=== PATIENT | male | born 1935 | race Caucasian/White ===

== ENCOUNTER → 2017-10-13 | Outpatient (CLI) | payer OTHER ==
[~2017-10-13] VITALS: Ht 175.3 cm; Wt 80.3 kg
[~2017-10-13] MED LIST: ALEVE220 MG PO; ASPIR 8181 MG PO; ATORVASTATIN CA40 MG PO; BENAZEPRIL HCL20 MG PO; CELEXA20 MG PO; NORVASC5 MG PO; SYNTHROID50 MCG PO
--- NOTE | ~2017-10-13 | S ---
[facility] [place] [address] SURGICAL PATH RPT PROCEDURE Name: LIZZY HERNANDEZ Room #: REG SONIA M..#: [id number] Admission: 10/13/17 Date of : 37 Discharge: Report #: [id number] Path Case #: [id number] PATHOLOGY REPORT COLLECTION DATE: 10/13/2017 RECEIVED DATE: 10/13/2017 SUBMITTING PHYS: Dr. Jordan Malhotra OTHER PHYS: Dr. Todd Moran SPECIMEN(S) RECEIVED: A.Polyp at cecum B.Polyp at proximal ascending colon C.Polyp at distal transverse D.Polyp at 70 cm E.Polyp at 20 cm * * * * * * * * * * * * FINAL DIAGNOSIS: A. Polyp, at cecum, endoscopic biopsy: - Minute tubular adenoma. - Negative for high-grade dysplasia. B. Polyp, proximal ascending colon, endoscopic biopsy: - Hyperplastic polyp and a lymphoid aggregate - Negative for dysplasia. C. Polyp, distal transverse, endoscopic biopsy: - Hyperplastic polyp and a lymphoid aggregate. - Negative for dysplasia. D. Polyp, at 70 cm, endoscopic biopsy: - Hyperplastic polyp. - Negative for dysplasia. E. Polyp, at 20 cm, endoscopic biopsy: - Hyperplastic polyp. - Negative for dysplasia. (IUV:pit; 10/14/2017) PATHOLOGIST: Roxie Thomas M.D. REPORT ELECTRONICALLY SIGNED BY: Roxie Thomas M.D. DATE/TIME: 10/14/2017 14:24 * * * * * * * * * * * * GROSS PATHOLOGY: A. Received in formalin labeled "Rolf Janeth, polyp at cecum," is a segment of chávez soft tissue measuring 0.4 cm in maximum dimension. The specimen is submitted entirely in cassette A1. B. Received in formalin labeled "Rolf Janeth, polyp at proximal ascending colon," is a segment of chávez soft tissue measuring 0.[address] [address] SURGICAL PATH RPT PROCEDURE Name: LIZZY HERNANDEZ Room #: REG [facility].#: [id number] Admission: 10/13/17 Date of : 37 Discharge: Report #: [id number] Path Case #: [id number] maximum dimension. The specimen is submitted entirely in cassette B1. C. Received in formalin labeled "Rolf Janeth, polyp at distal transverse," is a segment of chávez soft tissue measuring 0.3 cm in maximum dimension. The specimen is submitted entirely in cassette C1. D. Received in formalin labeled "Rolf Janeth, polyp at 70 cm," is a segment of chávez soft tissue measuring 0.4 cm in maximum dimension. The specimen is submitted entirely in cassette D1. E. Received in formalin labeled "Rolf Janeth, polyp at 20 cm," is a segment of chávez soft tissue measuring 0.3 cm in maximum dimension. The specimen is submitted entirely in cassette E1. (TSD; 10/13/2017) CLINICAL HISTORY: Pre-OP DX: History of colon polyps Post-OP DX: Colon polyps INITIAL CPT CODE(S): A; 48003 B; 60512 C; 75785 D; 85026 E; 26825 Professional services performed by [facility] at [facility] [address], [place] [address] Technical services performed by [facility] at [address] [place] [address], [address], [place] [address]. [facility] [address] [place] [address] PHONE: [phone] DIRECTOR: Grant Bronson M.D. * * * END OF REPORT * * *
--- NOTE | ~2017-10-13 | P ---
[facility] [address] PROCEDURE REPORT Name: LIZZY HERNANDEZ Room #: REG [facility]#: [id number] Admission: 10/13/17 Attend Phys: Jordan Malhotra MD Discharge: Date of : 37 Report #: [id number] THIS REPORT FOR: //name// CC: Jordan Moran DATE OF SERVICE: 10/13/2017 BRIEF HISTORY: The patient is an 82-year-old male with a history of colon polyps. PREOPERATIVE DIAGNOSIS: History of colon polyps. POSTOPERATIVE DIAGNOSES: 1. Colon polyps. 2. Sigmoid diverticulosis coli. MEDICATIONS: Deep sedation with propofol per Anesthesia. SPECIMEN: 1. Polyp, cecum. 2. Polyp, proximal ascending colon. 3. Polyp, distal transverse colon. 4. Polyp, 70 cm. 5. Polyp, 20 cm. ESTIMATED BLOOD LOSS: 3 mL. PROCEDURE: Colonoscopy to cecum and terminal ileum with biopsy. FINDINGS: Prior to propofol sedation, procedure of colonoscopy discussed with the patient as well as potential risks and its complications. He indicates he understands and desires to proceed. DESCRIPTION OF PROCEDURE: With the patient in left lateral decubitus position, digital examination was completed which revealed no abnormalities. Subsequently, the [employer] video colonoscope was introduced in the rectum, advanced under direct vision to the cecum. Done with minimal difficulty. The cecum was identified by the ileocecal valve and appendiceal orifice. I was able to visualize the distal segment of terminal ileum, which was inspected and noted to be unremarkable. At that point, the scope was slowly withdrawn and careful circumferential views were obtained of the colon. The prep was good. The mucosa was within normal limits. Normal vascular pattern, normal light reflex. Within the cecum, a diminutive polyp seen and removed by biopsy. Scope was further withdrawn of the proximal ascending colon and another diminutive polyp seen and removed by biopsy. As the scope was withdrawn, the mucosa was within [facility] [address] [place] [address] PROCEDURE REPORT Name: LIZZY HERNANDEZ [facility] [id number] Admission: 10/13/17 Attend Phys: Jordan Malhotra MD Discharge: Date of : 37 Report #: [id number] normal limits until the distal transverse colon, where another diminutive polyp was seen and removed by biopsy. At 70 cm, another diminutive polyp was seen and removed by biopsy. In the sigmoid colon, there was moderately severe diverticular disease without endoscopic evidence of diverticulitis. In the distal sigmoid at 20 cm, another diminutive polyp seen and removed by biopsy. The scope was drawn in the rectum and no additional abnormalities were seen. Upon retroflexion, no abnormalities were seen. Scope was withdrawn. The patient tolerated the procedure well. CONDITION OF THE PATIENT UPON DISCHARGE: Following procedure, the patient drowsy, aroused, conversant and will be discharged home when fully ambulatory. INSTRUCTIONS TO THE PATIENT AND FAMILY AT THE TIME: Five small polyps identified as noted above. We will follow up on the pathology report. If 3 or more polyps are adenomas, we may wish to consider a followup colonoscopy in about 3 years. I would base that recommendation on his overall health status at that time. Otherwise, there may be minimal benefit to continue the routine colonoscopy. The patient's last colonoscopy was 01/11/2008. Withdrawal time from the cecum was 24 minutes 30 seconds. <ELECTRONICALLY SIGNED> By: Jordan Malhotra MD 10/14/17 1015 [id number] [id number] Jordan Malhotra MD /nt
== END | disposition home or self-care (01) ==
LOC: GI 08:54
DX: Z09 Encounter for follow-up examination after completed treatment for conditions other than malignant neoplasm (principal); D12.0 Benign neoplasm of cecum; K63.5 Polyp of colon; K57.30 Diverticulosis of large intestine without perforation or abscess without bleeding; I10 Essential (primary) hypertension; E78.5 Hyperlipidemia, unspecified; Z85.828 Personal history of other malignant neoplasm of skin; Z86.010 Personal history of colon polyps; Z87.891 Personal history of nicotine dependence; Z98.890 Other specified postprocedural states; Z79.899 Other long term (current) drug therapy; Z79.82 Long term (current) use of aspirin
CPT/HCPCS: 62110; 62900

== ENCOUNTER 2020-07-21 09:14 | Inpatient (IN) | payer OTHER ==
[~2020-07-21] VITALS: Ht 175.3 cm; Wt 75.3 kg
--- NOTE | ~2020-07-21 | O ---
[facility] [place] [address] OPERATIVE REPORT Name: LIZZY HERNANDEZ Room #: 447-P [facility] IN M.R.#: [id number] Admission: 08/01/20 Attend Phys: Sarmad Sheridan MD Discharge: Date of : 37 Report #: [id number] THIS REPORT FOR: cc: Todd Moran MD, Rene P. MD Abraham,Sarmad Tripp MD ~ CC: Todd Sheridan DATE OF SERVICE: 08/01/2020 PREOPERATIVE DIAGNOSIS: Left knee osteoarthritis. POSTOPERATIVE DIAGNOSIS: Left knee osteoarthritis. PROCEDURE: Left total knee arthroplasty using Navio robotic assistance. SURGEON: Sarmad Sheridan MD. BLENDER OPERATOR: Karen Fernández PA-C. INDICATIONS FOR BLENDER OPERATOR: Throughout the case, extensive retraction and manipulation of the knee was required. This was afforded to me by my endodontic assistant. ANESTHESIA: LMA with an adductor canal block. IMPLANTS: Rashid and Nephew size 7 Journey II BCS cobalt chrome femur, size 5 tibia, size 11 constrained polyethylene and size 35 patella. TOURNIQUET TIME: 62 minutes. ESTIMATED BLOOD LOSS: 25 mL. COMPLICATIONS: None. SPECIMENS: None. CONDITION UPON LEAVING THE OPERATING ROOM: Stable. INDICATIONS FOR PROCEDURE: The patient is an 84-year-old gentleman with severe left knee osteoarthritis. He had failed conservative measures for this and after discussion with him, he elected for left total knee arthroplasty. DESCRIPTION OF PROCEDURE: Risks, benefits, alternatives, complications were discussed in detail with the patient including, but not limited to risk of anesthesia; risk of damage to nerves, arteries, blood vessels; risk for [facility] [address] [place] [address] OPERATIVE REPORT Name: LIZZY HERNANDEZ Room #: 447-P [facility] IN .R.#: [id number] Admission: 08/01/20 Attend Phys: Sarmad Sheridan MD Discharge: Date of : 37 Report #: [id number] infection, bleeding; risk for continued knee pain, need for reoperation. Informed consent was obtained from the patient. Left knee was appropriately marked in the preoperative holding area. IV Ancef was given for preoperative antibiotics. Adductor canal block was placed by Anesthesia. He was brought to the operating room and placed in supine position on operating room table. LMA anesthesia was induced without complication. Tourniquet was placed on the left thigh. Left lower extremity was prepped and draped in normal sterile fashion. Timeout was performed properly identifying the patient and procedure as well as the instrumentation and implants. All in the operating room were in agreement. Left lower extremity was exsanguinated, tourniquet was inflated. Tourniquet time was 62 minutes. Standard midline approach to the knee was made with 10 blade through the skin. Dissection was taken down sharply to the fascia and deep flaps were developed medially and laterally. Fresh 10 blade was used to make a medial parapatellar arthrotomy and the knee was inspected. There was severe tricompartmental osteoarthritis. ACL and PCL were removed sharply. Reference pins were placed in the femur and the tibia and the knee was then digitally mapped using the Net[employer] robotic system. We sized the size 7 femur with a size 5 tibia with a 10 spacer. After acceptance of the intraoperative plan, the distal femoral cut was made with a Navio bur. Distal femoral cutting block was pinned in place and anterior, posterior and chamfer cuts were made. After this, attention was turned to the tibia. Remainder of the menisci was removed with Bovie cautery. Tibial resection guide was pinned in place using the Navio for placement. Tibial resection was made. Flexion and extension gaps were then checked and found to be tight medially in extension. Medial osteophytes were removed from the tibia and a limited medial release was performed using the pie crust technique. This balanced the knee well in flexion and extension medially with laxity laterally. It was felt we could make up for this with the final implant. After this, tibia was sized, found to be a size 5. A size 5 tibial trial was placed, pinned and punched. A size 7 femoral trial was placed and box cut was made. This was then trialed with a size 10 and then a size 11 polyethylene and size 11 polyethylene demonstrated 1-2 millimeter of laxity medially and 4 mm of laxity laterally throughout range of motion. It was felt we could make up for this with a constrained implant. After this, 9 mm was resected from the posterior surface of the patella and a size 35 patellar trial button was placed. Knee was taken through range of motion, found to be stable, found to have good patellar tracking. Trial components were removed. Bony ends were thoroughly irrigated with normal saline. Final size 5 tibia, size 7 Journey II BCS cobalt chrome femur and a size 35 patella were cemented in place using standard cementation techniques. While the cement cured, a periarticular injection consisting of morphine, ropivacaine, epinephrine and Toradol was placed around the knee joint capsule. After the cement cured, tourniquet was deflated. Hemostasis was obtained with Bovie cautery. A final size 11 constrained polyethylene was placed. A gram of vancomycin was placed deep in the joint. Fascia was closed with 0 Vicryl, skin was closed with 2-0 Vicryl, 3-0 Monocryl. Dermabond and a JADYN dressing was applied. The patient tolerated [facility] [address] [place] [address] OPERATIVE REPORT Name: LIZZY HERNANDEZ Room #: 447-P ADM IN M.R.#: [id number] Admission: 08/01/20 Attend Phys: Sarmad Sheridan MD Discharge: Date of : 37 Report #: [id number] this procedure well and went to recovery room under care of anesthesia postoperatively. By: 1426 1526 Sarmad Sheridan MD /nt
[~2020-07-21 09:14] MED LIST changes: -ATORVASTATIN CA40 MG PO; +BENAZEPRIL-HCT1 EACH PO; +CENTRUM SILVER1 EAC5 PO; +CITRACAL + D M1 EACH PO; +LEVO-T75 MCG PO; +LIPITOR40 MG PO; +PROSCAR 5MG TABL5 M1 PO
[2020-07-21 13:05] LABS: HEMATOCRIT 46.2 % (42.0-52.0); HEMOGLOBIN 15.5 gm/dL (14.0-18.0); MCH 31.9 pg (26.0-34.0); MCHC 33.5 g/dL (28.0-37.0); MCV 95.1 fL (80.0-100.0); RBC 4.86 mil/uL (4.50-6.00); RDW 13.8 % (10.5-14.5); WBC 7.4 thou/uL (4.0-11.0)
[2020-07-21 13:12] LABS: ALBUMIN 4.2 g/dL (3.4-5.0); CALCIUM 9.1 mg/dL (8.5-10.1); CREATININE 0.9 mg/dL (0.7-1.3); POTASSIUM 4.5 mmol/L (3.5-5.1)
[2020-07-21 13:16] LABS: INR 1.1; PROTIME 11.5 Seconds (9.3-11.4)
[2020-07-21 13:22] LABS: URINE BILIRUBIN NEGATIVE (Negative); URINE BLOOD NEGATIVE (Negative); URINE CLARITY CLEAR; URINE COLOR YELLOW; URINE GLUCOSE-RANDOM* NEGATIVE (Negative); URINE KETONES TRACE (Negative); URINE LEUKOCYTES-REFLEX NEGATIVE (Negative); URINE NITRITE-REFLEX NEGATIVE (Negative); URINE PROTEIN (DIPSTICK) NEGATIVE (Negative); URINE SPECIFIC GRAVITY 1.025 (1.005-1.035); URINE UROBILINOGEN 0.2 E.U./dl (0.2-1.0)
--- NOTE | 2020-07-21 13:27 | EKG ---
[facility] [place] [address] ELECTROCARDIOGRAM REPORT Name: LIZZY HERNANDEZ Room #: PRE IN M.R.#: [id number] Admission: Attend Phys: Sarmad Sheridan MD Discharge: Date of : 37 Report #: [id number] THIS REPORT FOR: cc: Todd Moran MD, Rene P. MD Lundgren,Cecilio Palacios MD [facility] ~ THIS REPORT FOR: //name// [facility] Test Date: 2020-07-21 Test Time: 12:55:20 Pat Name: LZIZY HERNANDEZ Department: Room: Gender: Counseling Case Manager: Ferdinand GARZA : 1935 Requested By: Sarmad Sheridan Order Number: [id number] MD: Cecilio Madison Measurements Intervals [place] Rate: 71 P: 61 MO: 208 QRS: -63 QRSD: 109 T: 59 QT: 395 QTc: 430 Interpretive Statements Sinus rhythm Left anterior fascicular block Compared to ECG 01/26/2000 10:44:10 Left anterior fascicular block now present Sinus bradycardia no longer present Electronically Signed On 07-21-2020 13:27:15 CDT by Cecilio Madison [email or web address] <ELECTRONICALLY SIGNED> By: Cecilio Madison MD, [facility] 07/21/20 1327 1255 1255 Cecilio Madison MD, [facility] /EPI
[2020-08-01 11:59] VITALS: BP 121/69
--- NOTE | 2020-08-01 16:59 | NUR ---
ASSESSMENT: CM REVIEWED CHART AND SPOKE WITH PATIENT. PT IS S/P LEFT KNEE. PT REPORTS LIVING AT HOME WITH HIS IN A HOUSE. PT REPORTS ABOUT 3 STEPS WITH HANDRAILS TO GET INSIDE AND NO STEPS HE HAS TO USE ONCE INSIDE. PT REPORTS HE HAS A WALKER AT [facility]. PT REPORTS HAVING OUTPATIENT THERAPY ARRANGED ALREADY AT [facility] TO START ON TUESDAY. PT REPORTS HE SHOULD HAVE NO NEEDS PRIOR TO D/C. CM WILL CONTINUE TO FOLLOW TO ASSIST NEEDED. PT NEEDS TO WORK WITH PT/OT.
--- NOTE | 2020-08-01 19:14 | NUR ---
PATIENT ARRIVED ON UNIT AT 15:45 PT ALERT XS 4. V.S. 97.4 18 81 122/73 O2 SAT 92-94 % RA, HAS TIERNEY HEARING AIDES. LUNGS CTA DIMINISHED. L FA IV WITH FLUIDS INFUSING. HAS [employer] DRESSING POLAR PACK SCD'S AND DEBI HOSE ON ORDERED. PT WAS ORDERED DINNER REGULAR DIET. PT PLEASANT AND COOPERATIVE WITH CARE. NO PAIN OR RESP DISTRESS.
[2020-08-01 20:27] VITALS: BP 117/67
--- NOTE | 2020-08-02 01:19 | NUR ---
ASSUMED PT CARE AT 1900.PT ALERT,CALM AND COPERATIVE WITH CARE.DRSG TO HIS L KNEE C/D/I WITH POLAR PACK IN PLACE.SCD AND DEBI HOSE IN PLACE TO HIS BLE.PT DECLINED REPOSITIONING AT THIS TIME.EDUCATION GIVEN.PT RESTING COMFORTABLY ON HIS BED.CALL LIGHT WITHIN REACH.
[2020-08-02 04:37] VITALS: BP 108/82
[2020-08-02 05:26] LABS: HEMATOCRIT 34.9 % (42.0-52.0); HEMOGLOBIN 11.6 gm/dL (14.0-18.0); MCH 31.7 pg (26.0-34.0); MCHC 33.2 g/dL (28.0-37.0); MCV 95.6 fL (80.0-100.0); RBC 3.65 mil/uL (4.50-6.00); RDW 13.8 % (10.5-14.5); WBC 19.5 thou/uL (4.0-11.0)
[2020-08-02 08:25] VITALS: BP 105/51
[2020-08-02 12:00] VITALS: BP 105/51
[2020-08-02] MEDS ORDERED: ULTRA-LIGHT RO1 EACH (12:08)
--- NOTE | 2020-08-02 12:15 | NUR ---
Assumed care of pt. at 0700. Pt. was calm and cooperative. Mild complaints of pain before therapy, prn pain med given. Pt. was cleared for discharge by the doctor. Pt. needed walker before discharge via order from . PT notified, walker obtained. Discharge teaching given.
== END 2020-08-02 12:53 | disposition home or self-care (01) | DRG 470 ==
LOC: PRE 09:14 → TBA 08-01 10:25 → PRE 08-01 11:05 → 4S 08-01 15:51 → PRE 08-01 16:31 → 4S 08-02 12:53
PROVIDERS: ADMIT Orthopaedic Surgery; ATTEND Orthopaedic Surgery
PROC: 3E0T3BZ Introduction of Anesthetic Agent into Peripheral Nerves and Plexi, Percutaneous Approach (ICD-10-PCS; principal; 2020-08-01)
PROC: 0SRD0J9 Replacement of Left Knee Joint with Synthetic Substitute, Cemented, Open Approach (ICD-10-PCS; principal; 2020-08-01)
PROC: 8E0Y0CZ Robotic Assisted Procedure of Lower Extremity, Open Approach (ICD-10-PCS; principal; 2020-08-01)
DX: M17.12 Unilateral primary osteoarthritis, left knee (principal)
CPT/HCPCS: 10102; 50010; 50101; 50415; 50954; 51130; 51225; 51320; 52001; 52282; 53000; 53078; 54118; 56527; 56528; 57095; 57103; 57110; 57127; 57180; 58239; 62110; 62900; 64039; 70005

== ENCOUNTER → 2020-07-28 | Outpatient (CLI) | payer OTHER | LOC: LAB 13:46 | PROVIDERS: ATTEND Orthopaedic Surgery | DX: Z01.812 Encounter for preprocedural laboratory examination (principal); Z20.828 Contact with and (suspected) exposure to other viral communicable diseases ==